=== PATIENT | female | born 1960 | race Caucasian/White ===

== ENCOUNTER 2018-05-02 15:21 | Emergency (ER) | payer SELFPAY ==
[~2018-05-02] VITALS: Ht 172.7 cm; Wt 95.7 kg
[2018-05-02 15:44] VITALS: BP 150/82
[2018-05-02] MEDS ORDERED: HYDROcodone-ACET 10/325MG TAB PO ONE (16:00)
[2018-05-02] MEDS ORDERED: KETOROLAC TROMETH 60MG/2ML VIAL IM ONE (16:30)
[2018-05-02 17:29] LABS: Urine Bacteria FEW /hpf (None Seen); Urine Blood 1+ /uL (Negative); Urine Mucus FEW (None Seen); Urine Specific Gravity 1.021 (1.001-1.035); Urine WBC 13 /hpf (0 - 5)
== END 2018-05-02 17:43 | disposition home or self-care (01) ==
LOC: ER 15:29
DX: R51 Headache (principal); N39.0 Urinary tract infection, site not specified
CPT/HCPCS: 70450; 81001; 99284; J1885